=== PATIENT | female | born 1960 | race Caucasian/White ===

== ENCOUNTER → 2019-05-09 | Outpatient (CLI) | payer BC ==
[~2019-05-09] MED LIST: ALBU90OI INH; BUDE10.22 IH; CALCIUM PO; LORA10ER PO; MULVITMIND PO; VITAMIN D-3 PO
[2019-05-09 10:03] LABS: BASOPHILS ABSOLUTE AUTO 0.08 K/mm3 (0.00-0.23); BASOPHILS PERCENT AUTO 1 % (0-2); EOSINOPHILS ABSOLUTE AUTO 0.19 K/mm3 (0.00-0.68); EOSINOPHILS PERCENT AUTO 3 % (0-6); Hematocrit 40.4 % (33.0-51.0); Hemoglobin 14.1 g/dL (11.5-16.0); IMMATURE GRAN ABSOLUTE AUTO 0.01 K/mm3 (0.00-0.10); IMMATURE GRAN PERCENT AUTO 0 % (0-1); LYMPHOCYTES ABSOLUTE AUTO 2.91 K/mm3 (0.84-5.20); LYMPHOCYTES PERCENT AUTO 40 % (21-46); MONOCYTES ABSOLUTE AUTO 0.53 K/mm3 (0.16-1.47); MONOCYTES PERCENT AUTO 7 % (4-13); Mean Corpuscular HGB Conc 34.9 g/dL (31.5-36.5); Mean Corpuscular Volume 95 fL (80-100); Mean Platelet Volume 10.2 fL (9.1-12.4); NEUTROPHILS PERCENT AUTO 49 % (41-73); Platelet Count 302 K/mm3 (150-400); RDW Coefficient Variation 11.9 % (11.7-14.2); RDW Standard Deviation 40.9 fL (35.1-46.3); Red Blood Cell Count 4.27 M/mm3 (3.80-5.20); White Blood Cell Count 7.32 K/mm3 (4.00-11.30)
[2019-05-09 10:23] LABS: Alanine Aminotransfer (ALT/SGP 25 U/L (12-78); Albumin, Blood 3.7 g/dL (3.4-5.0); Alk Phos 76 U/L (40-126); Anion Gap 14 mmol/L (6-16); Aspartate Aminotrans (AST/SGOT 26 U/L (12-37); Bilirubin, Total 0.3 mg/dL (0.1-1.0); Blood Urea Nitrogen 12 mg/dL (8-24); Bun/Creatinine Ratio 14.6 (12.0-20.0); CO2, Blood 25 mmol/L (21-32); Calcium, Blood 9.2 mg/dL (8.5-10.1); Chloride, Blood 108 mmol/L (98-108); Creatinine, Blood 0.82 mg/dL (0.40-1.00); Globulin, Blood 3.7 g/dL (2.2-4.0); Glomerular Filtration Rate >60 (60-); Glucose, Blood 122 mg/dL (70-99); Potassium, Blood 3.9 mmol/L (3.5-5.5); Sodium, Blood 147 mmol/L (136-145); Total Protein, Blood 7.4 g/dL (6.4-8.2)
== END ==
LOC: LAB EV 09:58 → LAB SHORT 09:58
PROVIDERS: Emergency Medicine
DX: R05 Cough (principal)
CPT/HCPCS: 80053; 83880; 85025

== ENCOUNTER → 2019-12-19 | Outpatient (CLI) | payer BC, OTHER | LOC: LAB EV 11:39 → LAB SHORT 11:39 | DX: R05 Cough (principal); Z20.828 Contact with and (suspected) exposure to other viral communicable diseases | CPT/HCPCS: U0003 ==